=== PATIENT | male | born 1990 | race Asian ===

== ENCOUNTER 2022-03-25 14:03 | Emergency (ER) | payer SELFPAY ==
[2022-03-25] MEDS ORDERED: Ibuprofen 800 MG Tab PO ONE (14:11)
== END 2022-03-25 14:35 | disposition left against medical advice (07) ==
LOC: FB.ED 14:03
DX: S69.92XA Unspecified injury of left wrist, hand and finger(s), initial encounter (principal); F91.8 Other conduct disorders
CPT/HCPCS: 99282; 99283